=== PATIENT | male | born 1940 | race Caucasian/White ===

== ENCOUNTER 2023-03-07 08:02 | Emergency (ER) | payer MEDICARE, OTHER ==
[2023-03-07] VITALS (18 sets, daily range): BP systolic 134–157; BP diastolic 75–118
[~2023-03-07] VITALS: Ht 190.5 cm; Wt 141.0 kg
[2023-03-07 08:43] LABS: BASO% 0.6 % (0-3); EOS% 1.2 % (0-8); HEMATOCRIT 42.5 % (39.0-50.0); HEMOGLOBIN 13.8 g/dl (14.0-18.0); IMMATURE GRANULOCYTES 0.2 % (0.0-5.0); LYMPH% 12.7 % (15-41); MEAN CORPUSCULAR HGB 30.2 pG CALC (26.0-32.0); MEAN CORPUSCULAR HGB CONC 32.5 g/dL CAL (32.0-36.0); MONO% 5.4 % (2-13); NEUT# 6.83 thou/uL (1.82-7.42); NEUT% 79.9 % (42-76); RED BLOOD COUNT 4.57 mill/uL (4.70-6.10); RED CELL DISTRI WIDTH 13.4 % (11.5-15.5)
[2023-03-07 08:50] LABS: ALBUMIN 3.5 g/dL (3.2-5.0); BILIRUBIN, TOTAL 0.7 mg/dL (0.2-1.3); CREATININE 1.6 mg/dL (0.7-1.3); POTASSIUM 2.9 mmol/l (3.5-5.1); TOTAL PROTEIN 6.8 g/dL (6.3-8.2)
[2023-03-07] MEDS ORDERED: K-TAB20 MEQ PO (09:52)
[2023-03-07] MEDS ORDERED: SIMVASTATIN40 MG PO (10:27)
[2023-03-07] MEDS ORDERED: TOLTERODINE TART4 MG PO (10:30)
[2023-03-07] MEDS ORDERED: VALSARTAN160 MG PO (10:31)
[2023-03-07] MEDS ORDERED: SENNA/DSS1 TAB PO (10:32)
[2023-03-07] MEDS ORDERED: VITAMIN B-12500 MCG PO (10:34)
[2023-03-07] MEDS ORDERED: VITAMIN D-32000 UNI1 PO (10:35)
[2023-03-07 10:42] LABS: URINE BILIRUBIN - DIPSTICK Negative (NEGATIVE); URINE BLOOD DIPSTICK Small (NEGATIVE); URINE GLUCOSE - DIPSTICK 100 mg/dL (NEGATIVE); URINE KETONE Negative (NEGATIVE); URINE LEUK ESTERASE Negative (NEGATIVE); URINE NITRITE - DIPSTICK Negative (Negative); URINE PH 6.5 (4.5-8.0); URINE PROTEIN - DIPSTICK >=300 mg/dL (NEG-TRACE); URINE UROBILINOGEN - DIPSTICK 0.2 E.U./dL (0.2)
[2023-03-07 10:44] LABS: URINE COLOR Yellow
[2023-03-07 11:00] LABS: URINE RBC 0-2 RBC/hpf (0-5); URINE SQUAMOUS EPITHELIAL CELL RARE EPI/hpf (0-FEW); URINE WBC 0-2 WBC/hpf (0-5)
[2023-03-08] MEDS ORDERED: ELIQUIS5 MG PO (16:51)
[2023-03-10] MEDS ORDERED: DOK100 M1 PO (11:00)
[2023-03-10] MEDS ORDERED: CVS SENNA8.6 MG PO (11:01)
[2023-03-10] MEDS ORDERED: FENOFIBRATE145 MG PO (11:04)
[2023-03-10] MEDS ORDERED: FEROSUL325 MG PO (11:05)
[2023-03-10] MEDS ORDERED: FINASTERIDE5 MG PO (11:06)
[2023-03-10] MEDS ORDERED: GLIPIZIDE ER10 M1 PO (11:07)
[2023-03-10] MEDS ORDERED: FOLATE400 MCG PO (11:07)
[2023-03-10] MEDS ORDERED: JANUVIA50 MG PO (11:08)
[2023-03-10] MEDS ORDERED: METOPROL TAR100 MG PO (11:09)
[2023-03-10] MEDS ORDERED: PIOGLITAZONE HC30 MG PO (11:10)
[2023-03-10] MEDS ORDERED: EXFORGE HC4 PO (11:12)
[2023-03-10] MEDS ORDERED: K-TAB20 MEQ PO (11:18)
[2023-03-10] MEDS ORDERED: TOPROL XL100 MG PO (12:17)
[2023-03-10] MEDS ORDERED: NORVASC PO (12:26)
== END 2023-03-07 13:49 | disposition home or self-care (01) ==
LOC: ED 08:02
PROVIDERS: Family Medicine
DX: R53.1 Weakness (principal); S80.212A Abrasion, left knee, initial encounter; S80.211A Abrasion, right knee, initial encounter; S50.02XA Contusion of left elbow, initial encounter; S50.01XA Contusion of right elbow, initial encounter; I10 Essential (primary) hypertension; E11.9 Type 2 diabetes mellitus without complications; W18.39XA Other fall on same level, initial encounter; Y92.099 Unspecified place in other non-institutional residence as the place of occurrence of the external cause; Z86.711 Personal history of pulmonary embolism; Z86.73 Personal history of transient ischemic attack (TIA), and cerebral infarction without residual deficits